=== PATIENT | female | born 1950 | race Two or more races ===

== ENCOUNTER 2017-09-22 08:56 | Inpatient (IN) | payer MEDICARE ==
[2017-09-22] MEDS ORDERED: NITROGLYCERIN SUBLINGUAL 0.4 MG BOTTLE OF 25. SL (09:15)
[2017-09-22] MEDS: ASPIRIN ENTERIC COATED 325 MG TABLET.DR. PO (09:32)
[2017-09-22] MEDS: ACETAMINOPHEN 500 MG TABLET PO (09:32)
[2017-09-22 09:45] LABS: ADD MAN DIFF? NO
[2017-09-22 09:50] LABS: BASO # 0.1 x10^3/uL (0.0-0.2); BASO % 1 % (0-3); EOS # 0.3 x10^3/uL (0.0-0.7); EOS % 4 % (0-3); HEMATOCRIT 39.5 % (36.0-47.0); HEMOGLOBIN 12.9 g/dL (12.0-15.5); LYMPH # 3.1 x10^3/uL (1.0-4.8); LYMPH % 40 % (24-48); MEAN CORPUSCULAR HEMOGLOBIN 27 pg (25-35); MEAN CORPUSCULAR HGB CONC 33 g/dL (31-37); MEAN CORPUSCULAR VOLUME 83 fL (79-100); MONO # 0.5 x10^3/uL (0.0-1.1); MONO % 6 % (0-9); NEUT # 3.8 x10^3uL (1.8-7.7); NEUT % 49 % (31-73); PLATELET COUNT 118 x10^3/uL (140-400); RED BLOOD COUNT 4.78 x10^6/uL (3.50-5.40); RED CELL DISTRIBUTION WIDTH 14.4 % (11.5-14.5); WHITE BLOOD COUNT 7.7 x10^3/uL (4.0-11.0)
[2017-09-22 10:00] LABS: PROTHROMBIN TIME PATIENT 12.1 SEC (11.7-14.0)
[2017-09-22 10:02] LABS: ANION GAP 11 (6-14); BLOOD UREA NITROGEN 13 mg/dL (7-20); BUN/CREATININE RATIO 16 (6-20); CALCIUM 9.1 mg/dL (8.5-10.1); CARBON DIOXIDE 30 mmol/L (21-32); CHLORIDE 101 mmol/L (98-107); CREATININE 0.8 mg/dL (0.6-1.0); GFR 71.3; GLUCOSE 152 mg/dL (70-99); POTASSIUM 3.1 mmol/L (3.5-5.1); SODIUM 142 mmol/L (136-145)
[2017-09-22 10:07] LABS: ALBUMIN 3.5 g/dL (3.4-5.0); ALBUMIN/GLOBULIN RATIO 0.9 (1.0-1.7); ALK PHOS 133 U/L (46-116); ALT (SGPT) 28 U/L (14-59); AST (SGOT) 31 U/L (15-37); MAGNESIUM 1.5 mg/dL (1.8-2.4); TOTAL BILIRUBIN 0.2 mg/dL (0.2-1.0); TOTAL PROTEIN 7.2 g/dL (6.4-8.2)
[2017-09-22 10:09] LABS: TROPONINI 0.036 ng/mL (0.000-0.055)
[2017-09-22] MEDS: MAGNESIUM SULFATE 1GM 100 ML IV (10:49)
[2017-09-22] MEDS: POTASSIUM CHLORIDE 20 MEQ TABLET.ER. PO (10:50)
[2017-09-22] MEDS: hydrALAZINE 20 MG/ML VIAL. IVP ×2 (11:12→21:12)
[2017-09-22] MEDS: LABETALOL 20 MG/4 ML DISP.SYRIN. IVP (12:21)
[2017-09-22] MEDS: LISINOPRIL 40 MG TABLET. PO (12:40)
[2017-09-22] MEDS: amLODIPine BESYLATE 10 MG TABLET PO (12:40)
[2017-09-22 13:01] LABS: THYROID STIM HORMONE (TSH) 2.077 uIU/mL (0.358-3.74)
[2017-09-22] MEDS ORDERED: DEXTROSE 50% 25 GM / 50ML DISP.SYRIN. IV (14:00)
[2017-09-22] MEDS ORDERED: ONDANSETRON PF 4 MG/2 ML VIAL. IV (14:00)
[2017-09-22] MEDS ORDERED: MORPHINE SULFATE 4 MG/ML DISP.SYRIN. IV (14:00)
[2017-09-22] MEDS ORDERED: DOCUSATE SODIUM 100 MG CAPSULE. PO (14:00)
[2017-09-22 15:11] LABS: TROPONINI 0.041 ng/mL (0.000-0.055)
[2017-09-22 17:01] LABS: POC GLUCOSE 203 mg/dL (70-99)
[2017-09-22] MEDS: ENOXAPARIN 40 MG/0.4 ML SYRINGE. SQ (17:50)
[2017-09-22] MEDS: CITALOPRAM 20 MG TABLET. PO (17:50)
[2017-09-22 17:53] LABS: TROPONINI 0.041 ng/mL (0.000-0.055)
[2017-09-22] MEDS: INSULIN ASPART 300 UNITS/3 ML INSULN.PEN SQ (17:58)
[2017-09-22 20:57] LABS: POC GLUCOSE 166 mg/dL (70-99)
[2017-09-22] MEDS: PNEUMOC CONJ VACC 23-VALENT 0.5 ML VIAL. VAX IM (21:18)
[2017-09-22] MEDS: traMADol 50 MG TABLET PO (22:10)
[2017-09-23 05:55] LABS: ADD MAN DIFF? NO
[2017-09-23 06:07] LABS: BASO % 1 % (0-3); EOS # 0.2 x10^3/uL (0.0-0.7); EOS % 3 % (0-3); HEMATOCRIT 37.5 % (36.0-47.0); HEMOGLOBIN 12.3 g/dL (12.0-15.5); LYMPH # 2.8 x10^3/uL (1.0-4.8); LYMPH % 36 % (24-48); MEAN CORPUSCULAR HEMOGLOBIN 27 pg (25-35); MEAN CORPUSCULAR HGB CONC 33 g/dL (31-37); MEAN CORPUSCULAR VOLUME 83 fL (79-100); MONO # 0.5 x10^3/uL (0.0-1.1); MONO % 7 % (0-9); NEUT # 4.2 x10^3uL (1.8-7.7); NEUT % 54 % (31-73); PLATELET COUNT 113 x10^3/uL (140-400); RED BLOOD COUNT 4.54 x10^6/uL (3.50-5.40); RED CELL DISTRIBUTION WIDTH 14.3 % (11.5-14.5); WHITE BLOOD COUNT 7.8 x10^3/uL (4.0-11.0)
[2017-09-23 06:54] LABS: ANION GAP 8 (6-14); BLOOD UREA NITROGEN 11 mg/dL (7-20); CALCIUM 8.4 mg/dL (8.5-10.1); CARBON DIOXIDE 33 mmol/L (21-32); CHLORIDE 103 mmol/L (98-107); CHOLESTEROL 169 mg/dL (0-200); CHOLESTEROL/HDL RATIO 4.3; CREATININE 0.6 mg/dL (0.6-1.0); GFR 99.4; GLUCOSE 127 mg/dL (70-99); HDLC 39 mg/dL (40-60); LDLC 105 mg/dL (0-100); NON-HDL CHOLESTEROL 130 mg/dL (0-129); SODIUM 144 mmol/L (136-145); TRIGLYCERIDES 126 mg/dL (0-150); VLDLC 25 mg/dL (0-40)
[2017-09-23] MEDS: INSULIN ASPART 300 UNITS/3 ML INSULN.PEN SQ ×3 (08:00→18:05)
[2017-09-23 08:14] LABS: POC GLUCOSE 135 mg/dL (70-99)
[2017-09-23] MEDS: LISINOPRIL 40 MG TABLET. PO (08:21)
[2017-09-23] MEDS: CITALOPRAM 20 MG TABLET. PO (08:21)
[2017-09-23] MEDS: ASPIRIN ENTERIC COATED 81 MG TABLET.DR. PO (08:21)
[2017-09-23] MEDS: amLODIPine BESYLATE 10 MG TABLET PO (08:21)
[2017-09-23 10:15] LABS: MAGNESIUM 1.9 mg/dL (1.8-2.4)
[2017-09-23 11:54] LABS: POC GLUCOSE 187 mg/dL (70-99)
[2017-09-23] MEDS: hydroCHLOROthiazide 12.5 MG CAPSULE PO (11:54)
[2017-09-23] MEDS: POTASSIUM CHLORIDE 20 MEQ TABLET.ER. PO ×2 (11:54→16:20)
[2017-09-23] MEDS: hydrALAZINE 20 MG/ML VIAL. IVP (11:55)
[2017-09-23] MEDS: traMADol 50 MG TABLET PO (11:59)
[2017-09-23] MEDS: CARVEDILOL 6.25 MG TABLET. PO (14:31)
[2017-09-23] MEDS: ENOXAPARIN 40 MG/0.4 ML SYRINGE. SQ (16:21)
[2017-09-23] MEDS: LABETALOL 20 MG/4 ML DISP.SYRIN. IVP (16:32)
[2017-09-23 16:42] LABS: POC GLUCOSE 157 mg/dL (70-99)
[2017-09-23] MEDS ORDERED: CARVEDILOL 6.25 MG TABLET. PO (17:00)
[2017-09-23 20:56] LABS: POC GLUCOSE 98 mg/dL (70-99)
[2017-09-23] MEDS: ATORVASTATIN CALCIUM 10 MG TABLET. PO (21:18)
[2017-09-24] MEDS: hydrALAZINE 20 MG/ML VIAL. IVP (03:58)
[2017-09-24 04:22] LABS: HEMOGLOBIN A1C 6.9 % (4.8-5.6)
[2017-09-24 04:55] LABS: ADD MAN DIFF? NO
[2017-09-24 05:03] LABS: BASO % 1 % (0-3); EOS # 0.3 x10^3/uL (0.0-0.7); EOS % 3 % (0-3); HEMATOCRIT 36.3 % (36.0-47.0); HEMOGLOBIN 11.9 g/dL (12.0-15.5); LYMPH # 3.6 x10^3/uL (1.0-4.8); LYMPH % 45 % (24-48); MEAN CORPUSCULAR HEMOGLOBIN 27 pg (25-35); MEAN CORPUSCULAR HGB CONC 33 g/dL (31-37); MEAN CORPUSCULAR VOLUME 83 fL (79-100); MONO # 0.6 x10^3/uL (0.0-1.1); MONO % 8 % (0-9); NEUT # 3.6 x10^3uL (1.8-7.7); NEUT % 44 % (31-73); PLATELET COUNT 118 x10^3/uL (140-400); RED BLOOD COUNT 4.39 x10^6/uL (3.50-5.40); RED CELL DISTRIBUTION WIDTH 14.3 % (11.5-14.5); WHITE BLOOD COUNT 8.1 x10^3/uL (4.0-11.0)
[2017-09-24 05:41] LABS: ANION GAP 7 (6-14); BLOOD UREA NITROGEN 12 mg/dL (7-20); CALCIUM 8.7 mg/dL (8.5-10.1); CARBON DIOXIDE 31 mmol/L (21-32); CHLORIDE 102 mmol/L (98-107); CREATININE 0.6 mg/dL (0.6-1.0); GFR 99.4; GLUCOSE 133 mg/dL (70-99); POTASSIUM 3.7 mmol/L (3.5-5.1); SODIUM 140 mmol/L (136-145)
[2017-09-24 08:44] LABS: POC GLUCOSE 170 mg/dL (70-99)
[2017-09-24] MEDS: ASPIRIN ENTERIC COATED 81 MG TABLET.DR. PO (09:00)
[2017-09-24] MEDS: amLODIPine BESYLATE 10 MG TABLET PO (09:01)
[2017-09-24] MEDS: LISINOPRIL 40 MG TABLET. PO (09:01)
[2017-09-24] MEDS: CITALOPRAM 20 MG TABLET. PO (09:01)
[2017-09-24] MEDS: CARVEDILOL 6.25 MG TABLET. PO ×2 (09:02→15:59)
[2017-09-24] MEDS: INSULIN ASPART 300 UNITS/3 ML INSULN.PEN SQ ×3 (09:04→17:00)
[2017-09-24] MEDS: hydroCHLOROthiazide 12.5 MG CAPSULE PO (09:07)
[2017-09-24 12:26] LABS: POC GLUCOSE 209 mg/dL (70-99)
[2017-09-24] MEDS: ENOXAPARIN 40 MG/0.4 ML SYRINGE. SQ (14:20)
[2017-09-24] MEDS ORDERED: IODIXANOL 320 MG/ML 100 ML VIAL. (15:27)
[2017-09-24] MEDS ORDERED: LIDOCAINE 2% 20 ML VIAL. (15:28)
[2017-09-24] MEDS ORDERED: fentaNYL PF VIAL 100 MCG/2 ML VIAL (16:39)
[2017-09-24] MEDS ORDERED: MIDAZOLAM HCL/PF 2 MG/2 ML VIAL. (16:40)
[2017-09-24] MEDS: MIDAZOLAM HCL/PF 2 MG/2 ML VIAL. IV (16:54)
[2017-09-24] MEDS: LIDOCAINE 2% 20 ML VIAL. IJ (16:54)
[2017-09-24] MEDS ORDERED: CONTRAST GIVEN MC (17:00)
[2017-09-24] MEDS: IODIXANOL 320 MG/ML 100 ML VIAL. IART ×2 (17:00→17:08)
[2017-09-24] MEDS: fentaNYL PF VIAL 100 MCG/2 ML VIAL IV (17:00)
[2017-09-24 17:29] LABS: POC GLUCOSE 143 mg/dL (70-99)
[2017-09-24] MEDS: IV 1/2 NORMAL SALINE 1,000 ML IV (18:01)
[2017-09-24 20:35] LABS: POC GLUCOSE 245 mg/dL (70-99)
[2017-09-24] MEDS: ATORVASTATIN CALCIUM 10 MG TABLET. PO (21:21)
[2017-09-25] MEDS: hydrALAZINE 20 MG/ML VIAL. IVP (03:41)
[2017-09-25] MEDS: ACETAMINOPHEN 325 MG TABLET. PO (06:39)
[2017-09-25] MEDS: INSULIN ASPART 300 UNITS/3 ML INSULN.PEN SQ ×3 (08:00→17:00)
[2017-09-25 08:41] LABS: POC GLUCOSE 146 mg/dL (70-99)
[2017-09-25] MEDS: hydroCHLOROthiazide 12.5 MG CAPSULE PO (09:08)
[2017-09-25] MEDS: amLODIPine BESYLATE 10 MG TABLET PO (09:08)
[2017-09-25] MEDS: ISOSORBIDE MONONITRATE ER 30 MG TAB.ER.24H PO (09:09)
[2017-09-25] MEDS: CITALOPRAM 20 MG TABLET. PO (09:10)
[2017-09-25] MEDS: CARVEDILOL 6.25 MG TABLET. PO ×2 (09:10→17:00)
[2017-09-25] MEDS: ASPIRIN ENTERIC COATED 81 MG TABLET.DR. PO (09:10)
[2017-09-25] MEDS: IV 1/2 NORMAL SALINE 1,000 ML IV (10:20)
[2017-09-25 11:32] LABS: POC GLUCOSE 177 mg/dL (70-99)
[2017-09-25] MEDS: ENOXAPARIN 40 MG/0.4 ML SYRINGE. SQ (15:00)
== END 2017-09-25 17:39 | disposition home or self-care (01) | DRG 305 ==
LOC: ER 08:56 → 2 NORTH 10:25
DX: I16.0 Hypertensive urgency (principal); E83.42 Hypomagnesemia; I11.9 Hypertensive heart disease without heart failure; E11.9 Type 2 diabetes mellitus without complications; E87.6 Hypokalemia; E78.5 Hyperlipidemia, unspecified; F32.9 Major depressive disorder, single episode, unspecified; F41.9 Anxiety disorder, unspecified; F17.210 Nicotine dependence, cigarettes, uncomplicated; I34.0 Nonrheumatic mitral (valve) insufficiency; I07.1 Rheumatic tricuspid insufficiency; M19.90 Unspecified osteoarthritis, unspecified site; I70.1 Atherosclerosis of renal artery; Z86.73 Personal history of transient ischemic attack (TIA), and cerebral infarction without residual deficits; Z82.49 Family history of ischemic heart disease and other diseases of the circulatory system; Z90.710 Acquired absence of both cervix and uterus
CPT/HCPCS: 36252; 36415; 71045; 76770; 78452; 80048; 80053; 80061; 82962; 83036; 83735; 84443; 84484; 85025; 85610; 90732; 93005; 93017; 93306; 96365; 96374; 96375; 96376; 99152; 99153; 99285; 99285-25; A9500; C1769; C1771; C1892; G0269; J0360; J1644; J1650; J1815; J2250; J3010; J3475; J3490

== ENCOUNTER → 2017-10-27 | Outpatient (CLI) | payer MEDICARE ==
[2017-11-01 09:13] LABS: ALDOSTERONE 7.8 ng/dL (0.0-30.0); ALDOSTERONE/RENIN RATIO 40.4 (0.0-30.0)
== END | disposition home or self-care (01) ==
LOC: LAB 15:18
DX: I11.9 Hypertensive heart disease without heart failure (principal); E11.9 Type 2 diabetes mellitus without complications; E87.6 Hypokalemia; E83.42 Hypomagnesemia; Z87.891 Personal history of nicotine dependence
CPT/HCPCS: 82088; 84244

== ENCOUNTER → 2017-12-14 | Outpatient (CLI) | payer MEDICARE ==
[2017-12-14 14:16] LABS: ANION GAP 10 (6-14); BLOOD UREA NITROGEN 17 mg/dL (7-20); CALCIUM 8.5 mg/dL (8.5-10.1); CARBON DIOXIDE 25 mmol/L (21-32); CHLORIDE 107 mmol/L (98-107); CREATININE 0.7 mg/dL (0.6-1.0); GFR 83.2; GLUCOSE 108 mg/dL (70-99); POTASSIUM 4.2 mmol/L (3.5-5.1); SODIUM 142 mmol/L (136-145)
== END | disposition home or self-care (01) ==
LOC: LAB 13:40
DX: I11.9 Hypertensive heart disease without heart failure (principal); E11.9 Type 2 diabetes mellitus without complications; E78.5 Hyperlipidemia, unspecified; F17.210 Nicotine dependence, cigarettes, uncomplicated
CPT/HCPCS: 36415; 80048

== ENCOUNTER → 2018-07-20 | Outpatient (CLI) | payer MEDICARE ==
[2017-09-25 16:06] VITALS: BP 152/52
[~2018-07-20] MED LIST: AMLO10TA6 PO; ASPI-630 PO; CARV6.2511 PO; CITA20TA6 PO; HYDR-2869 PO; ISOS30TA4 PO; LISI1TAB5 PO; METF850T8 PO; VIT1TABL34 PO
[2018-07-20 10:56] LABS: CALCIUM 9.3 mg/dL (8.5-10.1); CREATININE 0.9 mg/dL (0.6-1.0); GFR 62.1; POTASSIUM 4.7 mmol/L (3.5-5.1)
== END | disposition home or self-care (01) ==
LOC: LAB 09:36
PROVIDERS: ATTEND Internal Medicine Cardiovascular Disease
DX: I10 Essential (primary) hypertension (principal)
CPT/HCPCS: 36415; 80048